=== PATIENT | male | born 1995 ===

== ENCOUNTER 2018-05-12 15:09 | Emergency (ER) | payer OTHER ==
[~2018-05-12] VITALS: Ht 165.1 cm; Wt 70.3 kg
[~2018-05-12 15:09] MED LIST: ACET500 PO; IBUP600 PO; Keflex500 MG PO; PENVK500 PO
[2018-05-12] MEDS ORDERED: ERYT1OIN RIGHTEYE (15:41)
== END 2018-05-12 15:46 | disposition home or self-care (01) ==
LOC: ER 15:09
DX: S05.01XA Injury of conjunctiva and corneal abrasion without foreign body, right eye, initial encounter (principal); X58.XXXA Exposure to other specified factors, initial encounter
CPT/HCPCS: 99283